=== PATIENT | male | born 1990 | race Caucasian/White ===

== ENCOUNTER 2017-09-01 06:15 | Emergency (ER) | payer BC, OTHER ==
[2017-09-01 06:21] VITALS: BP 141/94
[2017-09-01] MEDS ORDERED: Morphine VIAL* 4 MG/ML VIAL (1 ml vial) IV ONE (06:30)
--- NOTE | 2017-09-01 07:44 | ED ---
- HPI Summary HPI Summary: Patient is a 27-year-old male who presents emergency department for a needle stick injury. Patient is a nurse at [employer]. He was giving his patient a tinnitus injection of insulin to their upper arm when the needle went through patient's skin and into his left 4th digit of hand. Patient states he did not inject the insulin into his finger. He has no past medical history. Immunizations are up- to-date including tetanus. Symptoms are moderate in severity. No current modifying factors. Wound was washed with soap and water. - History of Current Complaint Chief Complaint: EDExposureBodyFluid Stated Complaint: NEEDLE STICK Time Seen by Provider: 09/01/17 06:22 PMH/Surg Hx/FS Hx/Imm Hx Previously Healthy: Yes Infectious Disease History: No Infectious Disease History: Denies: Traveled Outside the [place] in Last 30 Days - Social History Occupation: Employed Full-time Lives: With Family Alcohol Use: Rare Substance Use Type: Reports: None Smoking Status (MU): Never Smoked Tobacco Review of Systems Positive: Other - needlestick to 4th finger of left hand All Other Systems Reviewed And Are Negative: Yes Physical Exam Triage Information Reviewed: Yes Vital Signs On Initial Exam: Initial Vitals Temp Pulse Resp BP Pulse Ox 98.3 F 95 16 141/94 96 09/01/17 06:16 09/01/17 06:16 09/01/17 06:16 09/01/17 06:16 09/01/17 06:16 Vital Signs Reviewed: Yes Appearance: Positive: Well-Appearing - Patient sitting on bed in no acute distress. Head/Face: Positive: Normal Head/Face Inspection Eyes: Positive: Normal Neck: Positive: Supple Musculoskeletal: Positive: Other - Pinpoint puncture wound noted to the volar distal aspect of the fourth digit on the left hand. No bleeding. Neurological: Positive: Normal, CN Intact II-III Diagnostics - Vital Signs Vital Signs Temp Pulse Resp BP Pulse Ox 09/01/17 06:16 98.3 F 95 16 141/94 96 - Laboratory Lab Statement: Any lab studies that have been ordered have been reviewed, and results considered in the medical decision making process. Needlestick Course/Dx - Course Course Of Treatment: Patient presenting to the ER for potential blood exposure. Nurse spoke with source patient's nurse and source patient has no concerning risk factors or history. Protocol blood work was ordered. Patient offered prophylactic treatment which she declined. Exposure risk is low. Patient will follow up with [facility]. - Diagnoses Provider Diagnoses: Needle stick injury of finger Discharge - Sign-Out/Discharge Documenting (check all that apply): Discharge/Admit/Transfer - Discharge Plan Condition: Good Disposition: HOME Patient Education Materials: Needle Stick Injuries (ED) Referrals: Peggy Leahy MD [Primary Care Provider] - Additional Instructions: Follow up with the employee [facility] - Billing Disposition and Condition Condition: GOOD Disposition: Home
== END 2017-09-01 07:44 | disposition home or self-care (01) ==
LOC: ED 06:15
DX: S61.235A Puncture wound without foreign body of left ring finger without damage to nail, initial encounter (principal); W46.1XXA Contact with contaminated hypodermic needle, initial encounter; Y93.F9 Activity, other caregiving; Y92.230 Patient room in hospital as the place of occurrence of the external cause; Y99.0 Civilian activity done for income or pay
CPT/HCPCS: 36415; 86703; 86706; 86803; 87340; 99282